=== PATIENT | female | born 1955 | race Caucasian/White ===

== ENCOUNTER → 2019-08-16 | Outpatient (CLI) | payer OTHER | LOC: M.RAD 09:14 | PROVIDERS: ATTEND Nurse Practitioner Family | DX: Z12.31 Encounter for screening mammogram for malignant neoplasm of breast (principal) ==

== ENCOUNTER → 2019-09-06 | Outpatient (CLI) | payer OTHER | LOC: M.RAD 08-17 11:51 | PROVIDERS: ATTEND Nurse Practitioner Family | DX: R92.1 Mammographic calcification found on diagnostic imaging of breast (principal) ==

== ENCOUNTER → 2020-11-11 | Outpatient (CLI) | payer MEDICARE | LOC: M.RAD 12:10 | PROVIDERS: ATTEND Nurse Practitioner Family | DX: Z12.31 Encounter for screening mammogram for malignant neoplasm of breast (principal); N63.20 Unspecified lump in the left breast, unspecified quadrant; Z78.0 Asymptomatic menopausal state ==

== ENCOUNTER → 2020-11-11 | Outpatient (CLI) | payer OTHER | LOC: M.CT 12:01 | PROVIDERS: ATTEND Nurse Practitioner Family | DX: Z13.6 Encounter for screening for cardiovascular disorders (principal); I25.10 Atherosclerotic heart disease of native coronary artery without angina pectoris ==

== ENCOUNTER → 2020-11-13 | Outpatient (CLI) | payer MEDICARE | LOC: M.RAD 11-12 14:19 | PROVIDERS: ATTEND Nurse Practitioner Family | DX: N63.24 Unspecified lump in the left breast, lower inner quadrant (principal); N63.10 Unspecified lump in the right breast, unspecified quadrant; R91.1 Solitary pulmonary nodule; R91.8 Other nonspecific abnormal finding of lung field ==

== ENCOUNTER → 2021-03-04 | Outpatient (CLI) | payer MEDICARE ==
[2021-03-04 10:57] LABS: CREATININE 0.8 mg/dL (0.6-1.3)
== END ==
LOC: M.CT 10:27
PROVIDERS: ATTEND Nurse Practitioner Family
DX: J98.4 Other disorders of lung (principal); R91.1 Solitary pulmonary nodule; Z72.0 Tobacco use